=== PATIENT | male | born 1960 | race African-American/Black ===

== ENCOUNTER 2019-01-04 16:14 | Emergency (ER) | payer BC, OTHER ==
[~2019-01-04] VITALS: Ht 175.3 cm; Wt 98.9 kg
[2019-01-04 16:25] VITALS: BP 173/89
--- NOTE | 2019-01-04 16:25 | NUR ---
ED Nurse Note: Malik walked into ED c/o right ear tinniitus accompanied by postterior neck pain. patient rates his pain a 3/10. patient reports of having multiple episodes of dizziness. patient is alert and oriented x4, ambulatory with a steady gait, VSS
--- NOTE | 2019-01-04 18:32 | Emergency Room Report ---
History of Present Illness General Chief Complaint: Earache Source: Patient Present Illness HPI 58 YO male presents to the ED c/o 07/16 in severity bilateral earaches with fullness and distorted hearing progressive x 1 month, moderately worse this past week. Hx of DM and HTN. denies REYES, fevers, chills, neck pain/stiffness. Reports nasal congestion x 1 month. Denies external ear tenderness, or d/c. Denies ear or head trauma. denies rashes. pt. reports intermittent tinnitus and one episode of dizziness that was not described as vertigo. Denies imbalance, AMS or LOC. No other aggravating or relieving factors. Allergies: Coded Allergies: No Known Allergies (Unverified , 01/04/19) Patient History Past Medical History: see triage record, DM, HTN Past Surgical History: none Pertinent Family History: none Reviewed Nursing Documentation: PMH: Agreed; PSxH: Agreed Nursing Documentation-PMH Past Medical History: No History, Except For Hx Hypertension: Yes Hx Diabetes: Yes Review of Systems All Other Systems: negative except mentioned in HPI Physical Exam Vital Signs Date Time Temp Pulse Resp B/P (MAP) Pulse Ox O2 Delivery O2 Flow Rate FiO2 01/04/19 16:19 99.0 77 17 173/89 (117) 96 Room Air Sp02 EP Interpretation: reviewed, normal General Appearance: no apparent distress, alert, GCS 15, non-toxic Head: normocephalic, atraumatic Eyes: bilateral eye normal inspection, bilateral eye PERRL ENT: hearing grossly normal, normal voice, uvula midline, nasal congestion, other - Bilateral TM's are erythematous and bulging, fluid line noted bilaterally, normal canals, no external ear tenderness. no mastioditis Neck: full range of motion Respiratory: chest non-tender, lungs clear, normal breath sounds, no wheezing, speaking full sentences Cardiovascular #1: regular rate, rhythm Musculoskeletal: back normal, gait/station normal, normal range of motion, non- tender Neurologic: alert, oriented x3, responsive, motor strength/tone normal, sensory intact, normal gait, speech normal, grossly normal, grossly normal Psychiatric: judgement/insight normal Skin: no rash Lymphatic: no adenopathy Medical Decision Making PA Attestation Dr. Rayo Is my supervising Physician whom patient management has been discussed with. Diagnostic Impression: Primary Impression: Otitis media in diseases classified elsewhere, bilateral ER Course 58 YO male presents to the ED c/o 07/16 in severity bilateral earaches with fullness and distorted hearing progressive x 1 month, moderately worse this past week. Hx of DM and HTN. denies REYES, fevers, chills, neck pain/stiffness. Reports nasal congestion x 1 month. Denies external ear tenderness, or d/c. Denies ear or head trauma. denies rashes. pt. reports intermittent tinnitus and one episode of dizziness that was not described as vertigo. Denies imbalance, AMS or LOC. No other aggravating or relieving factors. Ddx considered but are not limited to OM, OE, mastoiditis, TM perforation, FB Vital signs: are WNL, pt. is afebrile H&PE are most consistent with bilateral otitis media, possibly secondary to prolonged nasal congestion/sinusitis ORDERS: none required at this time, the diagnosis is clinical ED INTERVENTIONS: None required at this time. DISCHARGE: At this time pt. is stable for d/c to home. With PO ABX. Will provide printed patient care instructions, and any necessary prescriptions. Care plan and follow up instructions have been discussed with the patient prior to discharge. Last Vital Signs Date Time Temp Pulse Resp B/P (MAP) Pulse Ox O2 Delivery O2 Flow Rate FiO2 01/04/19 16:25 99.0 73 17 173/89 96 Room Air Status: improved Disposition: HOME, SELF-CARE Condition: Stable Scripts Amoxicillin/Potassium Clav 875-125* (AUGMENTIN 875-125 TABLET*) 1 Each Tablet 1 TAB ORAL TWICE A DAY for 10 Days, #20 TAB Prov: Anabell Sullivan 01/04/19 Cetirizine Hcl/Pseudoephedrine (ZYRTEC-D TABLET) 1 Each Tab.er.12h 1 EACH ORAL Q12HR for 10 Days, #20 TAB Prov: Anabell Sullivan 01/04/19 Patient Instructions: Labyrinthitis, [id number], Otitis Media, Adult, Easy-to -Read Additional Instructions: Take medications as directed. Follow up with a Primary Care Provider or ENT ( EARS, NOSE, THROAT SPECIALIST) in 3-5 days, even if your symptoms have resolved. Return sooner to ED if new symptoms occur, or current symptoms become worse. - Please note that this Emergency Department Report was dictated using [employer] automation engineer technology software, occasionally this can lead to erroneous entry secondary to interpretation by the dictation equipment. Anabell Sullivan Jan 04, 2019 18:32
[2019-01-04] MEDS ORDERED: AUGMENTIN 875-1 EAC1 ORAL (18:38)
[2019-01-04] MEDS ORDERED: ZYRTEC-D TABLE1 EACH ORAL (18:38)
[2019-01-04 18:45] VITALS: BP 150/88
--- NOTE | 2019-01-04 18:45 | NUR ---
ER DISCHARGE NOTE: Patient is cleared to be discharged per ERMD, pt is aox4, on room air, with stable vital signs. pt was given dc and prescription instructions, pt was able to verbalize understanding, pt id band removed without complications. pt is able to ambulate with steady gait. pt took all belongings.
== END 2019-01-04 18:45 | disposition home or self-care (01) ==
LOC: EMR 17:09
DX: H66.93 Otitis media, unspecified, bilateral (principal); E11.9 Type 2 diabetes mellitus without complications; I10 Essential (primary) hypertension
CPT/HCPCS: 99282